=== PATIENT | female | born 1985 | race Caucasian/White ===

== ENCOUNTER 2016-09-08 17:41 | Emergency (ER) | payer BC ==
[2016-09-08 17:55] VITALS: BP 123/83
--- NOTE | 2016-09-08 18:09 | EDM.PDOC ---
<Francine Guillory - Last Filed: 09/08/16 18:01> ED HPI GENERAL MEDICAL PROBLEM - General Chief Complaint: Laceration Stated Complaint: RIGHT HAND LACERATION Time Seen by Provider: 09/08/16 18:00 Source of Information: Reports: Patient, RN Notes Reviewed History Limitations: Reports: No Limitations - History of Present Illness INITIAL COMMENTS - FREE TEXT/NARRATIVE: 31yo Female presents to ED today with a 1.8cm linear laceration to palmar aspect of right hand/wrist. Pt was doing dishes and felt a knife cut into her skin. Patient's spouse pushed wound together to minimize bleeding and put bandaid on it before presenting to ED today. Location: Reports: Upper Extremity, Right (right hand) Front/Back Body Image: 1 - 1.8cm linear laceration Right Wrist Pain Score (Numeric/FACES): 3 - Related Data Allergies Allergy/AdvReac Type Severity Reaction Status Date / Time sulfamethoxazole Allergy Rash Verified 09/08/16 17:56 [From ] trimethoprim [From ] Allergy Rash Verified 09/08/16 17:56 Home Meds: Home Meds . [No Known Home Meds] 09/08/16 [History] ED ROS GENERAL - Review of Systems Review Of Systems: See Below Constitutional: Reports: No Symptoms Skin: Reports: No Symptoms Neurological: Reports: No Symptoms Psychiatric: Reports: No Symptoms ED EXAM, SKIN/RASH Exam: See Below Exam Limited By: No Limitations General Appearance: Alert, No Apparent Distress Neurological: Alert, Oriented, Normal Cognition, No Motor/Sensory Deficits Psychiatric: Normal Affect, Normal Mood Skin: Warm, Dry, Normal Color (1.8cm linear laceration on palmar aspect of right wrist.), No Rash Location, Skin: Upper Extremity, Right Course - Vital Signs Last Recorded V/S: Last Vital Signs Temp 97.8 F 09/08/16 17:54 Pulse 99 09/08/16 17:54 Resp 18 09/08/16 17:54 BP 123/83 09/08/16 17:54 Pulse Ox 99 09/08/16 17:54 - Orders/Labs/Meds Meds: Medications Discontinued Medications Generic Name Dose Route Start Last Admin Trade Name Maximo PRN Reason Stop Dose Admin Lidocaine/Epinephrine 20 ml 09/08/16 18:18 09/08/16 18:45 Xylocaine 1% With Epinephrine 1:100,000 INJECT 09/08/16 18:19 20 ml ONETIME ONE Administration Lidocaine/Tetracaine 1 ml 09/08/16 18:18 09/08/16 18:45 Let Soln TOP 09/08/16 18:19 1 ml ONETIME ONE Administration Departure - Departure Disposition: Home, Self-Care 01 Clinical Impression: Hand laceration Qualifiers: Encounter type: initial encounter Foreign body presence: without foreign body Laterality: right Qualified Code(s): S61.411A - Laceration without foreign body of right hand, initial encounter - Discharge Information Instructions: Stitches, [place], or Adhesive Wound Closure, [id number], Laceration Care, Adult, [id number] Referrals: Gen Carter MD [Primary Care Provider] - Forms: ED Department Discharge Additional Instructions: See a provider at the walk in clinic in 7-10 days for suture removal. Cleanse site twice daily with soap and water, pat dry, reapply triple antibiotic and dressing. Keep area clean and dry. Refrain from soaking laceration in dirty dish water, hot tub water, pool water, tub water, or caro/river water. Return back to the ED if he expressed increased redness, swelling, or purulent drainage. <Woody Roach O - Last Filed: 09/09/16 00:06> ED SKIN PROCEDURES - Laceration/Wound Repair Right Hand Lac/wound length in cm: 1.8 Appearance: subcutaneous, clean Distal NVT: neuro & vascular intact, no tendon injury Anesthetic Type: other (topical and local) Local anesthesia - Lidocaine (Xylocaine): 1% with epi Local anesthetic volume: 3cc Skin prep: saline, sterile drape Exploration/Debridement/Repair: wound explored, in a bloodless field, explored to base, no foreign material found Closed with: sutures Suture size: 4-0 # of sutures: 8 Suture type: prolene, interrupted, simple Drain placement: No Sterile dressing applied: nurse Tetanus status addressed: Yes Complications: No Course - Orders/Labs/Meds Meds: Medications Discontinued Medications Generic Name Dose Route Start Last Admin Trade Name Maximo PRN Reason Stop Dose Admin Lidocaine/Epinephrine 20 ml 09/08/16 18:18 09/08/16 18:45 Xylocaine 1% With Epinephrine 1:100,000 INJECT 09/08/16 18:19 20 ml ONETIME ONE Administration Lidocaine/Tetracaine 1 ml 09/08/16 18:18 09/08/16 18:45 Let Soln TOP 09/08/16 18:19 1 ml ONETIME ONE Administration - Re-Assessments/Exams Free Text/Narrative Re-Assessment/Exam: 09/08/16 18:18 Ordered let topical solution and 1% lidocaine with epi. Laceration will require sutures. Laceration closed with no complications. Discharged home with instructions. Departure - Departure Time of Disposition: 19:39 Condition: good
[2016-09-08] MEDS ORDERED: Lidocaine/EPINEPHrine/Tetracaine Soln 1 ML TOP ONE (18:18)
[2016-09-08] MEDS ORDERED: Lidocaine 1% with EPINEPHrine 1:100,000 20 ML MDV INJECT ONE (18:18)
== END 2016-09-08 20:10 | disposition home or self-care (01) ==
LOC: JD.ED 17:41
DX: S61.411A Laceration without foreign body of right hand, initial encounter (principal); Z88.2 Allergy status to sulfonamides; Z88.8 Allergy status to other drugs, medicaments and biological substances; W26.0XXA Contact with knife, initial encounter
CPT/HCPCS: 12001; 99283; A9270; 99282-25